=== PATIENT | male | born 1980 | race Caucasian/White ===

== ENCOUNTER 2016-05-16 20:25 | Emergency (ER) | payer OTHER ==
[~2016-05-16] VITALS: Ht 177.8 cm; Wt 116.0 kg
[2016-05-16 20:53] VITALS: Ht 177.8 cm; Wt 116.0 kg
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
--- NOTE | 2016-05-17 01:30 | RADRPT ---
PROCEDURE: CT cervical spine without contrast CLINICAL INDICATION: Trauma. Neck pain. TECHNIQUE: CT scan of the cervical spine was performed on a multidetector scanner. No IV contrast was administered. Coronal and sagittal reformatted images were obtained from the axial source imag es. Images were reviewed on a high-resolution PACS workstation. Exam CTDlvol = 22 mGy and DLP = 606 mGy-cm. COMPARISON: None available FINDINGS: No fracture is identified. There is maintenance of height of the vertebral bodies. There is mild r eversal of the normal cervical lordosis. Alignment is otherwise maintained. There is no spondyloli sthesis. Limited evaluation of the canal contents is unremarkable. No significant degenerative tavares nges are noted. Prevertebral soft tissues are unremarkable. IMPRESSION: 1. No fracture or subluxation. 2. Mild reversal of the normal cervical lordosis most commonly seen with spasm versus positioning. RPTAT: HMVK .Cristofer Zulauga MD, Date Time Electronically viewed and signed by .Cristofer Zuluaga MD, on 05/17/2016 01:30 .K/
--- NOTE | 2016-05-17 01:33 | RADRPT ---
PROCEDURE: CT Brain without contrast. CLINICAL INDICATION: Trauma. Pain. . TECHNIQUE: Serial axial computed tomographic images of the brain was performed on a CT scanner fro m the skull base through the vertex without contrast. Exam CTDlvol = 43 mGy and DLP = 810 mGy-cm. COMPARISON: None available. FINDINGS: There is no fracture. The ventricles and sulci are normal in size and configuration. There is no m idline shift. There are no focal parenchymal abnormalities. There is no acute stroke. No acute in tracranial hemorrhage or abnormal extra-axial fluid collection. There is left maxillary sinus muco sharyn thickening.. IMPRESSION: 1. No acute post-traumatic abnormality. 2. Left maxillary sinus mucosal thickening. RPTAT: HMVK .Cristofer Zuluaga MD, Date Time Electronically viewed and signed by .Cristofer Zuluaga MD, on 05/17/2016 01:33 .K/
--- NOTE | 2016-05-17 01:36 | RADRPT ---
PROCEDURE: CT lumbar spine without contrast CLINICAL INDICATION: Injury. Pain. TECHNIQUE: CT scan of the lumbar spine was performed on a multidetector scanner. Neither intrave nous or intrathecal contrast was administered. Coronal and sagittal reformatted images were obtaine d from the axial source images. Images were reviewed on a high-resolution PACS workstation. Exam CT Dlvol = 39 mGy and DLP = 1372 mGy-cm. One of the following 3 dose reduction techniques were used: Au tomated exposure control; adjustment of the mA and/or kV according to patient size; or use of iterat melania reconstruction technique. COMPARISON: None available . FINDINGS: There is maintenance of height of the vertebral bodies. Alignment is maintained. There is no spondy lolisthesis. No fracture is identified. There is small posterior disk bulges at the L3-4 through L5- S1 with mild central canal stenosis. Mild bilateral neural foraminal stenosis L5-S1. Paraspinal sof t tissues are unremarkable. IMPRESSION: 1. No acute fracture or subluxation. 2. Mild lower lumbar spine posterior disk bulges, greatest at L5-S1 a mild bilateral neural foramin al stenosis. RPTAT: HMVK .Cristofer Zuluaga MD, Date Time Electronically viewed and signed by .Cristofer Zuluaga MD, MD on 05/17/2016 01:36 .K/
[2016-05-17] MEDS ORDERED: CYCL-319 PO (02:03)
[2016-05-17] MEDS ORDERED: ACET500C5 PO (02:03)
== END 2016-05-17 04:40 | disposition left against medical advice (07) ==
LOC: FTE 20:25
DX: S00.93XA Contusion of unspecified part of head, initial encounter (principal); S16.1XXA Strain of muscle, fascia and tendon at neck level, initial encounter; S39.012A Strain of muscle, fascia and tendon of lower back, initial encounter; F17.210 Nicotine dependence, cigarettes, uncomplicated; R51 Headache; V49.50XA Passenger injured in collision with unspecified motor vehicles in traffic accident, initial encounter
CPT/HCPCS: 70450; 72125; 72131